=== PATIENT | female | born 1995 | race Caucasian/White ===

== ENCOUNTER 2017-02-21 01:00 | Emergency (ER) | payer SELFPAY ==
[2017-02-21 01:36] VITALS: BP 115/73
== END 2017-02-21 01:36 | disposition home or self-care (01) ==
LOC: ED 01:00
DX: K08.89 Other specified disorders of teeth and supporting structures (principal)

== ENCOUNTER 2018-11-16 23:33 | Emergency (ER) | payer SELFPAY ==
[~2018-11-16] VITALS: Ht 165.1 cm; Wt 63.5 kg
[2018-11-16 23:45] VITALS: Ht 165.1 cm; Wt 63.5 kg
[2018-11-17 01:40] LABS: BASOPHIL % 0.3 % (0-2); PLATELET COUNT 229 x10^3mcL (130-400); RED CELL DISTRIBUTION WIDTH 14.1 % (11.5-14.5)
[2018-11-17 02:24] VITALS: BP 105/54
== END 2018-11-17 02:24 | disposition other institution (70) ==
LOC: ED 23:33
PROVIDERS: Emergency Medicine
DX: O26.891 Other specified pregnancy related conditions, first trimester (principal); O21.9 Vomiting of pregnancy, unspecified; R10.9 Unspecified abdominal pain; Z3A.13 13 weeks gestation of pregnancy; Z98.890 Other specified postprocedural states
CPT/HCPCS: 36415; Q0092; Q0162

== ENCOUNTER 2018-11-16 23:33 | Emergency (ER) | payer OTHER | END 2018-11-17 02:24 | disposition other institution (70) | LOC: ED 23:33 | DX: Z02.89 Encounter for other administrative examinations (principal) ==

== ENCOUNTER 2020-07-14 02:28 | Emergency (ER) | payer OTHER ==
[~2020-07-14] VITALS: Ht 165.1 cm; Wt 78.0 kg
[2020-07-14 02:32] VITALS: Ht 165.1 cm; Wt 78.0 kg
[2020-07-14 04:00] VITALS: BP 108/72
== END 2020-07-14 04:00 ==
LOC: ED 02:28
DX: Z02.89 Encounter for other administrative examinations (principal)